=== PATIENT | female | born 1990 | race African-American/Black ===

== ENCOUNTER 2019-07-25 17:38 | Emergency (ER) | payer BC ==
[~2019-07-25] VITALS: Ht 162.6 cm; Wt 56.7 kg
[2019-07-25] MEDS ORDERED: SODIUM CHLORIDE 0.9% 1000ML 1,000 ML IV SCH (17:45)
[2019-07-25] MEDS ORDERED: DIATRIZOATE MEGL/DIATRIZOA SOD 30 ML BTL PO ONE (17:56)
[2019-07-25] MEDS ORDERED: SODIUM CHLORIDE 0.9% 50ML 50 ML ONE (17:57)
[2019-07-25] MEDS ORDERED: IOPAMIDOL 370 MG/ML 200 ML INFUS..BTL INJ ONE (17:57)
[2019-07-25] MEDS ORDERED: ONDANSETRON HCL INJ 2MG/ML 2ML 2 MG/ML VIAL IV NR (18:00)
[2019-07-25] MEDS ORDERED: KETOROLAC TROMETHAMINE 30 MG/ML VIAL IV NR (18:00)
[2019-07-25] MEDS ORDERED: KETOROLAC TROMETHAMINE 30 MG/ML VIAL ONE (18:07)
[2019-07-25] MEDS ORDERED: ONDANSETRON HCL INJ 2MG/ML 2ML 2 MG/ML VIAL ONE (18:07)
[2019-07-25] MEDS ORDERED: SODIUM CHLORIDE 0.9% 1000ML 1,000 ML ONE (18:07)
--- OUTSIDE RECORDS SUMMARY | 2019-07-25 18:37 | XMS REPORT ---
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 Allergies, Adverse Reactions, Alerts Allergy Name Allergy Type Status Severity Reaction(s) Onset Date Inactive Date Treating Clinician Comments No Known Allergies DA Active U 2019-06-28 00:00:00 Medications This patient has no known medications. Results Test Description Test Time Test Comments Text Results Atomic Results Result Comments HCG Qualitative Urine 2019-07-24 23:21:47 hCG Ur (test code=hCG Ur) Negative If the result is "Negative" in patients suspected to be , recommend retest with a sample obtained 48 to 72 hours later, or by ordering a quantitative assay. If the result is "Borderline" shun ting should be repeated in 48 to 72 hours. Lot # (test code=Lot #) [id number] Expiration Dt (test code=Expiration Dt) Neg Control (test code=Neg Control) Negative Pos Control (test code=Pos Control) Positive Internal QC (test code=Internal QC) Acceptable Urinalysis with Culture, if [id number] 20:30:54* Test Item Value Reference Range Comments UA Color (test code=UA Color) YELLO Yellow UA Appear (test code=UA Appear) CLEAR Clear UA pH (test code=UA pH) 7 UA Spec Grav (test code=UA Spec Grav) 1.023 1.001-1.035 UA Glucose (test code=UA Glucose) NEG Negative UA Bili (test code=UA Bili) NEG Negative UA Ketones (test code=UA Ketones) NEG Negative UA Blood (test code=UA Blood) NEG Negative UA Protein (test code=UA Protein) NEG Negative UA Urobilinogen (test code=UA Urobilinogen) 0.2 mg/dL UA Nitrite (test code=UA Nitrite) NEG Negative UA Leuk Est (test code=UA Leuk Est) NEG Negative UA Micro Ind? (test code=UA Micro Ind?) Not Indicated Not Indicated Result created by rule [id number] - CT ABD PELVIS W/[id number] 08:37:00 Name: CHARLEY DENNY [facility] : 1990 Age/S: 28 / F [address] [facility] Unit #: [id number] Loc: CarpenterJOE [place]nur [address] Phys: Shadi Barnes BUSINESS ANALYTICS MANAGER Acct: [id number] Dis Date: Status: REG ER PHONE #: [phone] Exam Date: 06/28/2019826 FAX #: [phone] Reason: RLQ pain EXAMS: CPT CODE: [id number] CT ABD PELVIS W/CONT 91649 HISTORY: Right lower quadrant pain. COMPARISON: None available. CT of abdomen and pelvis with IV contrast: Automated exposure control. CT of abdomen: Lung bases are clear. The liver is enhancing homogeneously. No parenchymal mass or nodules. Liver measured 16 cm in length. Portal vein and hepatic artery remain patent. Gallbladder is without radiopaque stones. Unremarkable spleen enhancing homogeneously. Accessory spleen. Stomach distends incompletely however it is normal in appearance. Pancreas enhances homogeneously. Adrenals are unremarkable. Kidneys are free from hydroureteronephrosis. Homogeneous enhancement. Bilateral excretion is noted. No pathologic adenopathy. Well-opacified abdominal and pelvic vasculature. No bowel obstruction or colitis or diverticulitis or enteritis. Constipation. CT PELVIS: Appendix is normal. Pelvic bowel loops are unobstructed. Mild fluid distention of the distal small bowel. Unremarkable uterus. 3 cm simple cyst within the left ovary. Follicular ch chuck on the right. Unremarkable well-distended urinary bladder. No free fl uid or free air or abscess. No pelvic pathologic adenopathy. Subcutaneous tissues and musculature are normal in appearance. No lytic or blastic lesi ons are noted within the bony skeleton. IMPRESSION: 3 cm simple left ovarian cyst. No acute intra-abdominal or intrapelv ic pathology. PAGE 1 Signed Report (CONTINUED) Name: CHARLEY DENNY [facility] : 1990 Age/S: 28 / F [address] [place] Unit #: [id number] Loc: JOE [place]bar[place] [address] Phys: Shadi Barnes BUSINESS ANALYTICS MANAGER Acct: [id number] Dis Date: Status: REG ER PHONE #: [phone] Exam Date: 06/28/2019 0827 FAX #: [phone] Reason: RLQ pain EXAMS: CPT CODE: [id number] ABD PELVIS W/CONT 66637 < Continued> at 0837 Reported and signed by: Antelmo Moreno M.D. CC: Greg Weinbreg MD; Shadi Barnes NP Technologist:Emre Avila RT(R),(MR),(CT) CTDI: DLP: Trnscb Date/Time: 06/28/2019 (0837) [email or web address] Orig Print D/T: S: 06/28/2019 (0840) PAGE 2 Signed Report - DUP AB/PEL/SC [id number] 08:10:00 Name: CHARLEY DENNY [facility] : 1990 Age/S: 28 / F [facility] [place] Unit #: [id number] Loc: JOE Ibarra [address] Phys: Shadi Barnes BUSINESS ANALYTICS MANAGER Acct: [id number] Dis Date: Status: REG ER PHONE #: Exam Date: 06/28/2019 0800 FAX #: [phone] Reason: RLQ pain. r/o torsion EXAMS: CPT CODE: [id number] DUP AB/PEL/SC COMP 04433 HISTORY: RLQ pain history of ovarian cyst, r/o torsion TECHNIQUE: Static grayscale and color Doppler images from real-time transabdominal sonographic evaluation of the pelvis. Images from endovaginal probe were also acquired for better vis ualization of endometrial canal and adnexal structures. COMP ARISON: None FINDINGS: Uterus measures 8.2 x 5.1 x 5.4 cm ( length x AP x transverse dimensions). Endometrial stripe is normal thickne ss at 0.9 cm. Right ovary measures 2.3 x 1.5 x 2.2 cm. Simple 1.2 cm dominant follicle. Satisfactory color Doppler flow and spectral wavefo rm is detected. Left ovary measures 3.7 x 2.3 x 3.6 cm. Simp le 3.1 x 1.8 x 3.1 cm cyst. Satisfactory color Doppler flow and spectral w aveform is detected. No adnexal mass. Trace p elvic free fluid. IMPRESSION: No evidence of ovarian torsion. Simple 3.1 cm left ovarian cyst. No surveilla nce imaging is indicated. at 0810 Reported and sig marilyn by: Ayse Nielsen D.O. CC: Greg Weinberg MD; Shadi Barnes NP Technologist: COMFORT DIGGS RT(R),RDMS T rnscb Date/Time: 06/28/2019 (809) [email or web address] Orig Print D /T: S: 06/28/2019 (0813) Probe: PAGE 1 Signed Report - US PELVIS COMPLETE 2019-06-28 08:10:00 Name: CHARLEY DENNY [facility] : 1990 Age/S: 28 / F [address] [facility] Unit #: [id number] Loc: JOE Ibarra [address] Phys: Shadi Barnes NP Acct: [id number] Dis Date: Status: REG ER PHONE #: [phone] Exam Date: 06/28/2019 0800 FAX #: [phone] Reason: RLQ pain EXAMS: CPT CODE: [id number] US PELVIS COMPLETE 62763 HISTORY: RLQ pain history of ovarian cyst, r/o torsion TECHNIQUE: Static grayscale and color Doppler images from real-time transabdominal sonographic evaluation of the pelvis. Images from endovaginal probe were also acquired for better visualization of endometrial canal and adnexal structures. COMPARISON: None FINDINGS: Uterus measures 8.2 x 5.1 x 5.4 cm (length x AP x transverse dimensions). Endometrial stripe is normal thickness at 0.9 cm. Right ovary measures 2.3 x 1.5 x 2.2 cm. Simple 1.2 cm dominant follicle. Satisfactory color Doppler flow and spectral waveform is detected. Left ovary measures 3.7 x 2.3 x 3.6 cm. Simple 3.1 x 1.8 x 3.1 cm cyst. Satisfactory color Doppler flow and spectral waveform is detected. No adnexal mass. Trace pelvic free fluid. IMPRESSION: No evidence of ovarian torsion. Simple 3.1 cm left ovarian cyst. No surveillance imaging is indicated. at 0810 Reported and signed by: Ayse Nielsen D.O. CC: Greg Weinberg MD; Shadi Barnes NP Technologist: COMFORT DIGGS RT(R),TOSHIA Trncob Date/Time: 06/28/2019 (08) [email or web address] Orig Print D/T: S: 06/28/2019 (0813) Probe: PAGE 1 Signed Report - US TRANSVAGINAL NON [id number] 08:10:00 Name: CHARLEY DENNY [facility] [employer] [facility] : 1990 Age/S: 28 / F [address] [facility] Unit #: [id number] Loc: JOE Ibarra [address] Phys: Shadi Barnes NP Acct: [id number] Dis Date: Status: REG ER PHONE #: Exam Date: 06/28/2019 0800 FAX #: Reason: RLQ pain history of ovarian cyst, r/o torsion EXAMS: CPT CODE: [id number] [place] [address] HISTORY: RLQ pain history of ovarian cyst, r/o torsion TECHNIQUE: Static grayscale and color Doppler images from real-time transabdominal sonographic evaluation of the pelvis. Images from endovaginal probe were also acquired for better vis ualization of endometrial canal and adnexal structures. COMP ARISON: None FINDINGS: Uterus measures 8.2 x 5.1 x 5.4 cm ( length x AP x transverse dimensions). Endometrial stripe is normal thickne ss at 0.9 cm. Right ovary measures 2.3 x 1.5 x 2.2 cm. Simple 1.2 cm dominant follicle. Satisfactory color Doppler flow and spectral wavefo rm is detected. Left ovary measures 3.7 x 2.3 x 3.6 cm. Simp le 3.1 x 1.8 x 3.1 cm cyst. Satisfactory color Doppler flow and spectral w aveform is detected. No adnexal mass. Trace p elvic free fluid. IMPRESSION: No evidence of ovarian torsion. Simple 3.1 cm left ovarian cyst. No surveilla nce imaging is indicated. at 0810 Reported and sig marilyn by: Ayse Nielsen D.O. CC: Greg Weinberg MD; Shadi Barnes NP Technologist: COMFORT DIGGS RT(R),TOSHIA T rnscb Date/Time: 06/28/2019 (809) [email or web address] Orig Print D /T: S: 06/28/2019 (08) Probe: [id number] PAGE 1 Signed Report BASIC METABOLIC PANEL 2019-06-28 07:57:00* Test Item Value Reference Range Comments SODIUM (test code=NA) 142 mmol/L 136-145 POTASSIUM (test code=K) 3.8 mmol/L 3.5-5.1 CHLORIDE (test code=CL) 113.0 mmol/L 98-107 CARBON DIOXIDE (test code=CO2) 23.0 mmol/L 21-32 ANION GAP (test code=GAP) 9.8 10-20 GLUCOSE (test code=GLU) 94 mg/dL 74-106 BLOOD UREA NITROGEN (test code=BUN) 10 mg/dL 7-18 GLOMERULAR FILTRATION RATE (test code=GFR) > 60 mL/min >=60 Estimated GFR by using Modified MDRD formula.Chronic kidney disease is defined as either kidney damageor GFR <60 mL/min/1.73 m2 for >3 months. CREATININE (test code=CREAT) 0.60 mg/dL 0.55-1.02 Note change in reference range due to change in reagent. BUN/CREATININE RATIO (test code=BUN/CREA) 16.4 10-20 CALCIUM (test code=CA) 8.1 mg/dL 8.5-10.1 HEPATIC FUNCTION [id number] 07:57:00* Test Item Value Reference Range Comments TOTAL PROTEIN (test code=PROT) 6.0 gram/dL 6.4-8.2 ALBUMIN (test code=ALB) 3.0 g/dL 3.4-5.0 GLOBULIN (test code=GLOB) 3.0 gram/dL 2.7-4.2 ALBUMIN/GLOBULIN RATIO (test code=A/G) 1.0 0.75-1.50 BILIRUBIN TOTAL (test code=BILT) 0.30 mg/dL 0.0-1.0 BILIRUBIN DIRECT (test code=BILD) 0.08 mg/dL 0.0-0.20 SGOT/AST (test code=AST) 18 IUnit/L 15-37 SGPT/ALT (test code=ALT) 18 IUnit/L 12-78 ALKALINE PHOSPHATASE TOTAL (test code=ALKP) 62 IUnit/L 45-117 Note change in reference range due to change in reagent. [id number] 07:57:00* Test Item Value Reference Range Comments LIPASE (test code=LIP) 121 U/L 73.0-393.0 BASIC METABOLIC [id number] 07:49:00* Test Item Value Reference Range Comments SODIUM (test code=NA) 142 mmol/L 136-145 POTASSIUM (test code=K) 3.8 mmol/L 3.5-5.1 CHLORIDE (test code=CL) 113.0 mmol/L 98-107 CARBON DIOXIDE (test code=CO2) mmol/L 21-32 ANION GAP (test code=GAP) 10-20 GLUCOSE (test code=GLU) mg/dL 74-106 BLOOD UREA NITROGEN (test code=BUN) mg/dL 7-18 GLOMERULAR FILTRATION RATE (test code=GFR) mL/min >=60 CREATININE (test code=CREAT) mg/dL 0.55-1.02 BUN/CREATININE RATIO (test code=BUN/CREA) 10-20 CALCIUM (test code=CA) mg/dL 8.5-10.1 HEPATIC FUNCTION [id number] 07:49:00* Test Item Value Reference Range Comments TOTAL PROTEIN (test code=PROT) gram/dL 6.4-8.2 ALBUMIN (test code=ALB) g/dL 3.4-5.0 GLOBULIN (test code=GLOB) gram/dL 2.7-4.2 ALBUMIN/GLOBULIN RATIO (test code=A/G) 0.75-1.50 BILIRUBIN TOTAL (test code=BILT) mg/dL 0.0-1.0 BILIRUBIN DIRECT (test code=BILD) mg/dL 0.0-0.20 SGOT/AST (test code=AST) IUnit/L 15-37 SGPT/ALT (test code=ALT) IUnit/L 12-78 ALKALINE PHOSPHATASE TOTAL (test code=ALKP) IUnit/L 45-117 [id number] 07:49:00* Test Item Value Reference Range Comments LIPASE (test code=LIP) U/L 73.0-393.0 CBC W/O [id number] 07:43:00* Test Item Value Reference Range Comments WHITE BLOOD CELL (test code=WBC) 7.9 K/mm3 4.5-12.5 RED BLOOD CELL (test code=RBC) 4.17 mill/mm3 3.7-5.2 HEMOGLOBIN (test code=HGB) 11.1 gram/dL 11.5-15.5 HEMATOCRIT (test code=HCT) 36.1 % 36.0-46.0 MEAN CELL VOLUME (test code=MCV) 86.6 fL 80-98 MEAN CELL HGB (test code=MCH) 26.6 picogram 27.0-33.0 MEAN CELL HGB CONCETRATION (test code=MCHC) 30.7 gram/dL 33.0-36.0 RED CELL DISTRIBUTION WIDTH (test code=RDW) 14.4 % 11.6-16.2 PLATELET COUNT (test code=PLT) 217 K/mm3 150-450 MEAN PLATELET VOLUME (test code=MPV) 11.4 fL 6.7-11.0 URINALYSIS [id number] 07:10:00* Test Item Value Reference Range Comments UA COLOR (test code=COLU) Light-Yellow YELLOW UA APPEARANCE (test code=APPU) CLEAR CLEAR UA GLUCOSE DIPSTICK (test code=DGLUU) NEGATIVE mg/dL NEGATIVE UA BILIRUBIN DIPSTICK (test code=BILU) NEGATIVE mg/dL NEGATIVE UA KETONE DIPSTICK (test code=KETU) NEGATIVE mg/dL NEGATIVE UA SPECIFIC GRAVITY (test code=SGU) 1.015 1.001-1.035 UA BLOOD DIPSTICK (test code=ROSA ISELA) Negative mg/dL NEGATIVE UA PH DIPSTICK (test code=YENNI) 7.0 5.0-8.0 UA PROTEIN DIPSTICK (test code=PROU) NEGATIVE mg/dL NEGATIVE UA UROBILINIOGEN DIPSTICK (test code=URO) Normal mg/dL NEGATIVE UA NITRITE DIPSTICK (test code=FRANCOIS) NEGATIVE NEGATIVE UA LEUKOCYTE ESTERASE W REFLEX (test code=LEUUR) 25 Johana/uL (Trace) Johana/uL NEGATIVE UA WBC (test code=WBCU) 0-5 per HPF 0-5 UA RBC (test code=RBCU) 0-2 #/HPF 0-5 UA EPITHELIAL CELLS (test code=EPIU) FEW per HPF FEW UA BACTERIA (test code=BACU) NONE SEEN #/HPF NONE UA MUCUS (test code=MUCU) FEW #/LPF FEW Urine Source? Clean CatchUR HCG [id number] 07:10:00* Test Item Value Reference Range Comments UR HCG QUAL (test code=HCGQLU) NEGATIVE This HCGQL test is NOT applicable for MALE patients.Check with nurse about probable order error.If Tumor Marker Test needed, nurse should order test "HCGTU"(Test #550.07622) Urine Source? Clean CatchURINALYSIS [id number] 06:57:00* Test Item Value Reference Range Comments UA COLOR (test code=COLU) YELLOW UA APPEARANCE (test code=APPU) CLEAR UA BILIRUBIN DIPSTICK (test code=BILU) NEGATIVE UA SPECIFIC GRAVITY (test code=SGU) 1.001-1.035 UA PH DIPSTICK (test code=YENNI) 5.0-8.0 UA UROBILINIOGEN DIPSTICK (test code=URO) mg/dL 0.0-0.2 UA NITRITE DIPSTICK (test code=FRANCOIS) NEGATIVE UA LEUKOCYTE ESTERASE W REFLEX (test code=LEUUR) NEGATIVE UA WBC (test code=WBCU) per HPF 0-5 UA RBC (test code=RBCU) per HPF 0-5 UA EPITHELIAL CELLS (test code=EPIU) per HPF Few UA BACTERIA (test code=BACU) per HPF NONE Urine Source? Clean CatchUR HCG [id number] 06:57:00* Test Item Value Reference Range Comments UR HCG QUAL (test code=HCGQLU) NEGATIVE This HCGQL test is NOT applicable for MALE patients.Check with nurse about probable order error.If Tumor Marker Test needed, nurse should order test "HCGTU"(Test #550.22579) Urine Source? Clean CatchURINALYSIS [id number] 06:57:00* Test Item Value Reference Range Comments UA COLOR (test code=COLU) Light-Yellow YELLOW UA APPEARANCE (test code=APPU) CLEAR CLEAR UA GLUCOSE DIPSTICK (test code=DGLUU) NEGATIVE mg/dL NEGATIVE UA BILIRUBIN DIPSTICK (test code=BILU) NEGATIVE mg/dL NEGATIVE UA KETONE DIPSTICK (test code=KETU) NEGATIVE mg/dL NEGATIVE UA SPECIFIC GRAVITY (test code=SGU) 1.015 1.001-1.035 UA BLOOD DIPSTICK (test code=ROSA ISELA) Negative mg/dL NEGATIVE UA PH DIPSTICK (test code=YENNI) 7.0 5.0-8.0 UA PROTEIN DIPSTICK (test code=PROU) NEGATIVE mg/dL NEGATIVE UA UROBILINIOGEN DIPSTICK (test code=URO) Normal mg/dL NEGATIVE UA NITRITE DIPSTICK (test code=FRANCOIS) NEGATIVE NEGATIVE UA LEUKOCYTE ESTERASE W REFLEX (test code=LEUUR) 25 Johana/uL (Trace) Johana/uL NEGATIVE UA WBC (test code=WBCU) per HPF 0-5 UA RBC (test code=RBCU) per HPF 0-5 UA EPITHELIAL CELLS (test code=EPIU) per HPF Few UA BACTERIA (test code=BACU) per HPF NONE Urine Source? Clean CatchUR HCG [id number] 06:57:00* Test Item Value Reference Range Comments UR HCG QUAL (test code=HCGQLU) NEGATIVE This HCGQL test is NOT applicable for MALE patients.Check with nurse about probable order error.If Tumor Marker Test needed, nurse should order test "HCGTU"(Test #550.63310) Urine Source? Clean Catch
--- NOTE | 2019-07-25 18:51 | NUR ---
REPORT TO DEANNA PULLIAM
--- NOTE | 2019-07-25 19:31 | Diagnostic Imaging Report ---
CT Abdomen And Pelvis with Intravenous Contrast INDICATION: Right lower quadrant pain for 3 days ^[id number] ^1842 TECHNIQUE: Thin collimation axial images obtained from the diaphragm to the level of the pubic symphysis following the uneventful administration of 100 cc of low osmolar, nonionic intravenous contrast. Dose reduction techniques used: Automated exposure control, adjustment of the mAs and/or kVp according to patient size, standardized low-dose protocol, and/or iterative reconstruction technique. RADIATION DOSE: Total DLP: 309.27 mGy*cm Estimated effective dose: (DLP x 0.015 x size factor) mSv CTDIvol has been reviewed. It is below the limits set by the Radiation Protocol Committee (RPC). COMPARISON: None. ABDOMEN FINDINGS: Lung Bases: Clear. The visualized portions of the mediastinum are normal.. Liver: Normal attenuation. No evidence for mass. Gallbladder: Present and appears normal. No biliary ductal dilatation. Pancreas: Normal attenuation without mass or ductal dilatation. Spleen: Normal in size. No evidence of mass.. Adrenal Glands: No evidence for mass. Kidneys: Right: Normal enhancement. No soft tissue mass. No hydronephrosis. Left: Normal enhancement. No soft tissue mass. No hydronephrosis. Lymph Nodes: No lymphadenopathy. Aorta: Well opacified and normal. PELVIS FINDINGS: Bowel: Stomach: Contains enteric contrast and appears normal. Small Bowel: Contains enteric contrast in the mid small bowel. All small bowel loops are normal in diameter with normal wall thickness. Large Bowel: Moderate to large amount of stool throughout the colon. No focal mural thickening or pericolonic inflammation. Appendix: Best visualized on coronal reformations and is normal. Bladder: Underdistended. Uterus: Present and grossly normal in morphology. No adnexal mass. Peritoneum/retroperitoneum: No free fluid or fluid collection. Bones: No focal osseous lesions. IMPRESSION: 1. Moderate to large amount of stool throughout the colon. No evidence of bowel obstruction or inflammation. Normal appendix. 2. The remainder of the abdomen and pelvis are normal. Signed by: Dr. Amparo Stahl MD on 07/25/2019 7:28 PM
[2019-07-25] MEDS ORDERED: NAPROSYN500 MG PO (19:46)
== END 2019-07-25 20:20 | disposition home or self-care (01) ==
LOC: FSED 17:38
DX: R10.31 Right lower quadrant pain (principal); K59.00 Constipation, unspecified
CPT/HCPCS: 74177; 80053; 81003; 81025; 85025; 99284; J1885; J2405; J7030; Q9967